=== PATIENT | female | born 2000 | race Caucasian/White ===

== ENCOUNTER 2023-04-11 11:07 | Observation (INO) | payer SELFPAY ==
[2023-04-11] MEDS ORDERED: SODIUM CHLORIDE 0.9% 500 ML INFUS.BAG IV ONE ×2 (12:06→14:23)
[2023-04-11] MEDS ORDERED: FAMOTIDINE 20 MG/50 ML IVPB 20 MG/50 ML MG IVPB ONE ×2 (12:06→12:17)
[2023-04-11] MEDS ORDERED: ONDANSETRON 4 MG/2 ML VIAL IVPUSH ONE ×2 (12:06→18:57)
[2023-04-11] MEDS ORDERED: ONDANSETRON 4 MG/2 ML VIAL ONE ×2 (12:17→20:03)
[2023-04-11 12:36] LABS: BASO % 0.2 % (0-2.0); LYMPH % 9.1 % (8-40); MCH 31.4 pg (25.7-33.7); MCHC 33.4 g/dl (32.0-36.0); MEAN CELL VOLUME 93.9 fl (80-96); MEAN PLT VOLUME 8.2 fl (7.5-11.1); MONO % 1.6 % (3.8-10.2); NEUT % 89.1 % (42.8-82.8); PLATELET COUNT 317 10^3/uL (134-434); RBC 4.47 M/mm3 (3.60-5.2); RDW 12.9 % (11.6-15.6)
[2023-04-11 12:56] LABS: POTASSIUM 3.6 mmol/L (3.5-5.1)
[2023-04-11 12:58] LABS: ALBUMIN 4.3 g/dl (3.4-5.0); CALCIUM 9.4 mg/dL (8.5-10.1)
[2023-04-11 12:59] LABS: BLOOD UREA NITROGEN 19.2 mg/dL (7-18)
[2023-04-11 13:00] LABS: MAGNESIUM 2.1 mg/dL (1.8-2.4)
[2023-04-11 13:02] LABS: CREATININE 0.8 mg/dL (0.55-1.3)
[2023-04-11 13:03] LABS: BILIRUBIN,TOTAL 0.6 mg/dL (0.2-1); TOT PROT 7.5 g/dl (6.4-8.2)
[2023-04-11 14:04] LABS: URINE APPEARANCE CLEAR; URINE BILIRUBIN NEGATIVE (NEGATIVE); URINE COLOR YELLOW; URINE GLUCOSE (UA) TRACE (NEGATIVE); URINE KETONE 4+ (NEGATIVE); URINE LEUK ESTERASE NEGATIVE (NEGATIVE); URINE NITRITE NEGATIVE (NEGATIVE); URINE PROTEIN TRACE (NEGATIVE); URINE UROBILINOGEN 0.2 mg/dL (0.2-1.0)
[2023-04-11] MEDS ORDERED: PYRIDOXINE HCL (B-6) 100 MG TABLET PO ONE (14:22)
[2023-04-11] MEDS ORDERED: MAG HYDROX/AL HYDROX/SIMETH 30 ML UNIT-DOSE CUP PO ONE (14:23)
[2023-04-11] MEDS ORDERED: MAG HYDROX/AL HYDROX/SIMETH 30 ML UNIT-DOSE CUP ONE (14:36)
[2023-04-11] MEDS ORDERED: PYRIDOXINE HCL (B-6) 50 MG TABLET (FP) PO ONE (15:00)
[2023-04-11] MEDS ORDERED: METOCLOPRAMIDE HCL INJECTION 10 MG/2 ML VIAL IVPUSH ONE (15:47)
[2023-04-11] MEDS ORDERED: METOCLOPRAMIDE HCL INJECTION 10 MG/2 ML VIAL ONE (15:50)
[2023-04-11] MEDS ORDERED: ACETAMINOPHEN 1000 MG/100 ML BAG IVPB ONE (18:06)
[2023-04-11] MEDS ORDERED: ACETAMINOPHEN INJECTION 100 ML IVPB ONE (18:34)
[2023-04-11] MEDS: SODIUM CHLORIDE 1,000 ML IV SCH (19:01)
[2023-04-11] MEDS ORDERED: METOCLOPRAMIDE HCL INJECTION 10 MG/2 ML VIAL IVPUSH PRN (23:58)
[2023-04-12] MEDS ORDERED: PROMETHAZINE HCL 25 MG/1 ML VIAL IVPB PRN (00:33)
[2023-04-12 02:21] LABS: METHADONE, UR NEGATIVE (NEGATIVE); PHENCYCLIDINE,URINE NEGATIVE (NEGATIVE); URINE AMPHETAMINES NEGATIVE (NEGATIVE); URINE BENZODIAZEPINES NEGATIVE (NEGATIVE)
[2023-04-12 02:22] LABS: OPIATES, URI NEGATIVE (NEGATIVE)
[2023-04-12 02:27] LABS: COCAINE, UR POSITIVE (NEGATIVE); URINE BARBITURATES NEGATIVE (NEGATIVE)
[2023-04-12] MEDS ORDERED: PROMETHAZINE HCL 25 MG/1 ML VIAL ONE (05:30)
[2023-04-12 07:11] LABS: HEMATOCRIT 42.6 % (32.4-45.2); HEMOGLOBIN 13.8 GM/dL (10.7-15.3); MCH 31.4 pg (25.7-33.7); MCHC 32.5 g/dl (32.0-36.0); MEAN CELL VOLUME 96.4 fl (80-96); MEAN PLT VOLUME 9.1 fl (7.5-11.1); PLATELET COUNT 336 10^3/uL (134-434); RBC 4.41 M/mm3 (3.60-5.2); RDW 12.7 % (11.6-15.6); WHITE BLOOD COUNT 11.2 K/mm3 (4.0-10.0)
[2023-04-12 07:22] LABS: POTASSIUM 3.3 mmol/L (3.5-5.1)
[2023-04-12 07:28] LABS: ALBUMIN 4.5 g/dl (3.4-5.0); BLOOD UREA NITROGEN 7.1 mg/dL (7-18)
[2023-04-12 07:29] LABS: MAGNESIUM 2.1 mg/dL (1.8-2.4)
[2023-04-12 07:31] LABS: CALCIUM 9.4 mg/dL (8.5-10.1); CREATININE 0.7 mg/dL (0.55-1.3)
[2023-04-12 07:32] LABS: BILIRUBIN,TOTAL 0.6 mg/dL (0.2-1); TOT PROT 7.3 g/dl (6.4-8.2)
[2023-04-12] MEDS ORDERED: ENOXAPARIN NA (PORCINE) 40 MG/0.4 ML DISP.SYRIN SQ SCH (10:00)
[2023-04-12 15:12] VITALS: TEMP 98.2; BMI 26.6
[2023-04-12] MEDS: SODIUM CHLORIDE 1,000 ML IV SCH (15:24)
[2023-04-12 17:06] VITALS: BP 130/75; PULSE 63; RESP 18
== END 2023-04-12 19:30 | disposition left against medical advice (07) ==
LOC: JER 11:07 → JERBED 18:19 → J7W 04-12 14:43
PROVIDERS: ADMIT Internal Medicine; ATTEND Internal Medicine
PROC: 3E033GC Introduction of Other Therapeutic Substance into Peripheral Vein, Percutaneous Approach (ICD-10-PCS; principal; 2023-04-11)
PROC: 3E033NZ Introduction of Analgesics, Hypnotics, Sedatives into Peripheral Vein, Percutaneous Approach (ICD-10-PCS; 2023-04-11)
PROC: 3E0337Z Introduction of Electrolytic and Water Balance Substance into Peripheral Vein, Percutaneous Approach (ICD-10-PCS; 2023-04-11)
DX: O21.0 Mild hyperemesis gravidarum (principal); Z3A.00 Weeks of gestation of pregnancy not specified; R19.7 Diarrhea, unspecified; E87.6 Hypokalemia
CPT/HCPCS: 0241U-QW; 36415; 80053; 80307; 81003; 82962; 83690; 83735; 84100; 84702; 84703; 85025; 85027; 87086; 93005; 93010; 99285-25; G0378